=== PATIENT | female | born 1990 | race Caucasian/White ===

== ENCOUNTER 2017-05-03 12:20 | Emergency (ER) | payer OTHER ==
[~2017-05-03] VITALS: Ht 167.6 cm; Wt 79.4 kg
[2017-05-03 13:26] LABS: BACTERIA,URINE FEW /HPF (0-FEW); BILIRUBIN,URINE NEG (NEG); CLARITY,URINE CLEAR; COLOR,URINE YELLOW; GLUCOSE,URINE NEG (NEG); NITRITE,URINE NEG (NEG); RBC,URINE 0 /HPF (0-2); SQUAMOUS EPITHELIAL CELL,UR MOD /LPF; UROBILINOGEN,URINE 0.2 mg/dL (0.2 mg/dL); WBC,URINE OCC /HPF (0-4)
[2017-05-03] MEDS ORDERED: LEVO500T59 PO (13:33)
[2017-05-03] MEDS ORDERED: FLUC150T PO (13:33)
--- NOTE | 2017-05-03 13:38 | PHYS DOC ---
General Chief Complaint: ABDOMINAL PAIN Stated Complaint: BACK PAIN,URINARY ISSUES Time Seen by MD: 12:55 Source: patient, old records Exam Limitations: no limitations Problems: History of Present Illness Initial Comments Patient is a 27-year-old female who comes to the ED complaining of left flank pain. Patient states that she was diagnosed with a urinary tract infection several weeks ago. She states she completed a 5 day course of Macrobid without any relief, she followed back up with her primary care doctor and was prescribed a 5 day course of ciprofloxacin. She says a culture was obtained but she is unaware of the results, I have requested those. Upon review the culture grew out Klebsiella pneumonia it was resistant to Macrobid but is sensitive to Rocephin Cipro and Bactrim. She is very frustrated because she's been through 2 courses of antibiotics and has now developed left flank pain. She's had no nausea vomiting no fever or chills no blood noted in her urine. She would like to resolve these symptoms quickly as she is getting this month. ED vital signs are stable Timing/Duration: other Severity: moderate Modifying Factors: improves with medication Associated Symptoms: other Allergies: Coded Allergies: No Known Drug Allergies (Unverified , 01/16/15) Past Medical History Medical History: no pertinent history Surgical History: noncontributory Social History Smoker: quit greater than 1 year Alcohol: occasionally Drugs: none Review of Systems Constitutional: denies chills, denies diaphoresis, denies fever, denies malaise Respiratory: denies cough, denies shortness of breath Cardiovascular: denies chest pain, denies palpitations Gastrointestinal: abdominal pain, denies constipation, denies diarrhea, denies nausea, denies vomiting Genitourinary: see HPI Musculoskeletal: see HPI Psychiatric/Neurological: denies headache, denies numbness, denies paresthesia Physical Exam General Appearance: WD/WN, no apparent distress Neck: non-tender, supple Respiratory: normal breath sounds, no respiratory distress Gastrointestinal: normal bowel sounds, non tender, soft Back: no vertebral tenderness, CVA tenderness (L) Extremities: non-tender, normal inspection 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 Patient understands the risks and is agreeable she will be prescribed a 2 week course of Levaquin and as she is getting ready to get I will give her 5 Diflucan 150 mg tablets to take as needed when necessary yeast infection symptoms. She agrees to follow-up with James Wong in 2 weeks for a repeat urinalysis and urine culture. Signs and symptoms to monitor and indications to return were discussed she expressed agreement and understanding of the treatment plan. Urinalysis performed here in the emergency department revealed hCG negative and was negative for infection however this can be a normal finding after antibiotics have been started despite persistent symptoms. Departure Time of Disposition: 13:34 Disposition: 01 HOME, SELF-CARE Diagnosis: Complicated Klebsielle Pneumoniae pyelonephritis L Condition: GOOD Patient Instructions: Pyelonephritis, Adult, [id number] Additional Instructions: Aggressive hydration with Gatorade or water. Cultured yogurt (gogurt, danimals, etc) daily to replenish normal gut teresa and avoid opportunistic vaginal infections. OTC tylenol/ibuprofen as needed. Rx: Levaquin 500mg #14, diflucan 150mg #5 Take medication with food to avoid abdominal pain and nausea. Follow up with Karla Wong in 14 days to recheck urine and urine culture. Return to ED with new or changing symptoms. Congratulations on your upcoming nuptials! ASHLEY AKERS DO May 03, 2017 13:38
[2017-05-03] MEDS ORDERED: cefTRIAXone IM 1 GM VIAL IM ONE (14:00)
[2017-05-03 14:03] VITALS: BP 117/58
== END 2017-05-03 14:03 | disposition home or self-care (01) ==
LOC: ER 12:20
DX: N12 Tubulo-interstitial nephritis, not specified as acute or chronic (principal); B96.1 Klebsiella pneumoniae [K. pneumoniae] as the cause of diseases classified elsewhere; Z87.891 Personal history of nicotine dependence
CPT/HCPCS: 81001; 81025; 96372; 99283; J0696